=== PATIENT | female | born 1975 | race Caucasian/White ===

== ENCOUNTER 2024-06-28 09:40 | Outpatient (CLI) | payer OTHER, MEDICAID | END 2024-06-28 09:41 | disposition home or self-care (01) | LOC: CSHLAB 09:40 | PROVIDERS: ATTEND Surgery | DX: Z01.818 Encounter for other preprocedural examination (principal); K43.2 Incisional hernia without obstruction or gangrene | CPT/HCPCS: 93005; 93010 ==

== ENCOUNTER 2024-06-30 06:39 | Day surgery (SDC) | payer OTHER, MEDICAID ==
[2024-06-28 10:05] VITALS: BMI 18.1
[2024-06-30 07:35] LABS: Anion Gap 14 mmol/L (10-20); BUN (Urea Nitrogen) 9 mg/dL (7.0-18.7); Calc. Creatinine Clearance 76 mL/min (70-130); Calcium 7.8 mg/dL (7.8-10.44); Carbon Dioxide 20 mmol/L (22-29); Chloride 115 mmol/L (98-107); Estimated GFR 92; Glucose 86 mg/dL (70-105); Sodium 146 mmol/L (136-145)
[2024-06-30] MEDS ORDERED: Bupivacaine/Epinephrine 0.25% 30 ML VIAL ONE ×2 (07:47→09:15)
[2024-06-30] MEDS ORDERED: PROPOFOL 20 ML ONE (08:06)
[2024-06-30] MEDS ORDERED: Lidocaine 1% PF 5 ML VIAL ONE (08:06)
[2024-06-30] MEDS ORDERED: Rocuronium Bromide 10 MG/ML (10ML VIAL) ONE (08:07)
[2024-06-30] MEDS ORDERED: fentaNYL 50 mcg/mL 1 mL Vial ONE ×6 (08:09→10:40)
[2024-06-30] MEDS ORDERED: CEFAZOLIN 2 GM VIAL ONE (08:13)
[2024-06-30] MEDS ORDERED: ePHEDrine Sulfate 50 MG/10 ML VIAL ONE (08:40)
[2024-06-30] MEDS ORDERED: Glycopyrrolate 0.2 MG/ML 5 ML SYRINGE ONE (08:40)
[2024-06-30] MEDS ORDERED: Ketorolac Tromethamine 30 MG (1 mL) VIAL ONE (10:46)
[2024-06-30] MEDS ORDERED: HYDROcodone/Acetaminophen 5/325 mg Tablet ONE (11:05)
== END 2024-06-30 12:00 | disposition home or self-care (01) ==
LOC: CSHSDC 06:39
PROVIDERS: ATTEND Surgery
PROC: 0WUF4JZ Supplement Abdominal Wall with Synthetic Substitute, Percutaneous Endoscopic Approach (ICD-10-PCS; principal; 2024-06-30)
DX: K31.1 Adult hypertrophic pyloric stenosis (principal); R53.82 Chronic fatigue, unspecified; K43.2 Incisional hernia without obstruction or gangrene; M79.7 Fibromyalgia; F41.9 Anxiety disorder, unspecified; E78.00 Pure hypercholesterolemia, unspecified; E03.9 Hypothyroidism, unspecified; I10 Essential (primary) hypertension; E78.5 Hyperlipidemia, unspecified; F32.A Depression, unspecified; G43.909 Migraine, unspecified, not intractable, without status migrainosus; M81.0 Age-related osteoporosis without current pathological fracture; Z87.891 Personal history of nicotine dependence; Z79.899 Other long term (current) drug therapy; Z88.5 Allergy status to narcotic agent
CPT/HCPCS: 49593; 80048; C1781; J1885; J2704; J3010